=== PATIENT | female | born 1940 | race Caucasian/White ===

== ENCOUNTER 2018-05-16 06:59 | Observation (INO) | payer MEDICARE ==
--- NOTE | 2018-05-14 12:30 | NUR ---
CLARIFICATION ORDER CLARIFIED ORDER FOR PROCEDURE, PER DR. HAQUE, PROCEDURE IS ANTERIOR AND POSTERIOR REPAIR, VAGINAL HYSTERECTOMY.
[2018-05-14 12:32] LABS: BASOPHILS % (AUTO) 1.2 % (0.0-5.0); EOSINOPHILS % (AUTO) 2.4 % (0.0-8.0); HEMATOCRIT 40.4 % (36-48); LYMPHOCYTES % (AUTO) 31.5 % (21.0-51.0); MEAN CORPUSCULAR HEMOGLOBIN 30.3 pg (27.0-33.0); MEAN CORPUSCULAR HGB CONC 33.1 g/dL (32.0-36.0); MEAN CORPUSCULAR VOLUME 91.6 fL (79-99); NEUTROPHILS % (AUTO) 57.9 % (40.0-77.0); PLATELET COUNT (AUTO) 331 K/uL (130-400); RED BLOOD CELL COUNT(AUTO) 4.41 MIL/uL (4.00-5.50); RED CELL DISTRIBUTION WIDTH 14.3 % (11.0-15.5); WHITE BLOOD COUNT (AUTO) 7.4 K/uL (4.8-10.8)
[2018-05-14 12:41] VITALS: BP 164/81
[2018-05-14 12:48] LABS: ALBUMIN 3.6 g/dL (3.5-5.0); BILIRUBIN,TOTAL 0.4 mg/dL (0.2-1.0); CREATININE 0.6 mg/dL (0.5-1.5); POTASSIUM 4.1 mmol/L (3.5-5.1); TOTAL PROTEIN, SERUM 7.2 g/dL (6.0-8.3)
[2018-05-16] VITALS (20 sets, daily range): BP systolic 121–166; BP diastolic 48–78
[~2018-05-16] VITALS: Ht 160 cm; Wt 74.9 kg
[~2018-05-16 06:59] MED LIST: AEC81 PO; CALDOLOR 800MG+NS 250ML 250 ML IV SCH; CEFAZOLIN SODIUM 1 GM VIAL IVP SCH; LACTATED RINGERS 1000ML 1,000 ML IV SCH; LISI10TA7 PO
[2018-05-16] MEDS ORDERED: SULFANILAMIDE 120 GM TUBE VG ONE (07:45)
[2018-05-16] MEDS ORDERED: LIDOCAINE 1%-EPI 1:100,000 20 ML VIAL IJ ONE (07:45)
[2018-05-16] MEDS ORDERED: CEFAZOLIN SODIUM 1 GM VIAL ONE (07:49)
[2018-05-16] MEDS ORDERED: CALDOLOR 800MG+NS 250ML 250 ML IV ONE (07:49)
[2018-05-16] MEDS ORDERED: ONDANSETRON HCL 4 MG/2 ML VIAL ONE (08:25)
[2018-05-16] MEDS ORDERED: GLYCOPYRROLATE 1 MG/5 ML SYRINGE ONE (08:25)
[2018-05-16] MEDS ORDERED: NEOSTIGMINE 5MG/5ML SYR IV ONE (08:25)
[2018-05-16] MEDS ORDERED: LIDOCAINE PF 2% 5ML ABBOJECT ONE (08:25)
[2018-05-16] MEDS ORDERED: DEXAMETHASONE SOD PHOSPHATE 10MG/ML 1ML VIAL ONE (08:25)
[2018-05-16] MEDS ORDERED: SUCCINYLCHOLINE 200MG/10ML SYR ONE (08:25)
[2018-05-16] MEDS ORDERED: ROCURONIUM 10MG/1ML SYR 10 MG/ML ML ONE (08:26)
[2018-05-16] MEDS ORDERED: PROPOFOL 10 MG/ML 20ML VIAL IV ONE (08:26)
[2018-05-16] MEDS ORDERED: FENTANYL CITRATE PF 50 MCG/1 ML 2ML VIAL ONE ×3 (08:26→11:27)
[2018-05-16] MEDS ORDERED: ACETAMINOPHEN-CODEINE 300/30MG TAB PO PRN (11:00)
[2018-05-16] MEDS ORDERED: ONDANSETRON HCL 4 MG/2 ML VIAL IVP PRN (11:00)
[2018-05-16] MEDS ORDERED: BISACODYL 10 MG SUPP.RECT RC PRN (11:00)
[2018-05-16] MEDS ORDERED: SIMETHICONE 80 MG TAB.CHEW PO PRN (11:00)
[2018-05-16] MEDS ORDERED: PROMETHAZINE HCL 25 MG/ML 1ML AMPULE IM PRN (11:00)
[2018-05-16] MEDS ORDERED: DOCUSATE SODIUM 100 MG CAP PO PRN (11:00)
[2018-05-16] MEDS: DEXTROSE 5%-LACTATED RINGERS 1,000 ML IV PRN ×2 (12:13→23:12)
[2018-05-16] MEDS ORDERED: ACETAMINOPHEN 325 MG TAB PO PRN (15:45)
[2018-05-16] MEDS ORDERED: ACETAMINOPHEN 325 MG TAB ONE (16:40)
[2018-05-16] MEDS: CEFAZOLIN SODIUM 1 GM VIAL IVP SCH ×2 (16:48→22:06)
[2018-05-16] MEDS: CALDOLOR 800MG+NS 250ML 250 ML IVPB SCH (18:38)
[2018-05-16] MEDS: LISINOPRIL 10 MG TABLET PO SCH (20:59)
[2018-05-16] MEDS: ACETAMINOPHEN 325 MG TAB PO PRN (21:00)
--- NOTE | 2018-05-16 21:30 | NUR ---
OFFERED TO ARON SANCHEZ BUT SHE REFUSED.
[2018-05-17 01:14] VITALS: BP 115/48
[2018-05-17] MEDS: CALDOLOR 800MG+NS 250ML 250 ML IVPB SCH (03:12)
--- NOTE | 2018-05-17 04:00 | NUR ---
PT.SAID SHE'S PARTLY AWAKE AND DOES NOT WANT TO DANGLE AT THIS TIME.
[2018-05-17] MEDS: ACETAMINOPHEN 325 MG TAB PO PRN ×2 (04:26→10:00)
[2018-05-17 05:40] VITALS: BP 124/49
[2018-05-17] MEDS: CEFAZOLIN SODIUM 1 GM VIAL IVP SCH (06:41)
[2018-05-17 07:12] LABS: HEMATOCRIT 32.5 % (36-48); MEAN CORPUSCULAR HEMOGLOBIN 30.1 pg (27.0-33.0); MEAN CORPUSCULAR HGB CONC 32.5 g/dL (32.0-36.0); MEAN CORPUSCULAR VOLUME 92.7 fL (79-99); PLATELET COUNT (AUTO) 309 K/uL (130-400); WHITE BLOOD COUNT (AUTO) 11.5 K/uL (4.8-10.8)
[2018-05-17 07:47] VITALS: BP 122/59
[2018-05-17] MEDS: LISINOPRIL 10 MG TABLET PO SCH (09:59)
[2018-05-17] MEDS: DEXTROSE 5%-LACTATED RINGERS 1,000 ML IV PRN (10:02)
[2018-05-17] MEDS ORDERED: IBUPROFEN 800 MG TAB PO SCH (11:00)
[2018-05-17 11:20] VITALS: BP 118/58
--- NOTE | 2018-05-17 12:00 | NUR ---
MD DR. HAQUE ROUNDING ON PATIENT. VAGINAL PACKING REMOVED. THAKKAR CATHETER REMOVED BY MINNIE FAJARDO.
[2018-05-17 15:23] VITALS: BP 128/59
--- NOTE | 2018-05-17 15:55 | NUR ---
DISCHARGE PATIENT LEFT UNIT VIA WHEELCHAIR WITH BELONGINGS IN HAND ACCOMPANIED BY . PERSONAL VEHICLE USED FOR TRANSPORTATION. NO COMPLAINTS OR CONCERNS ADDRESSED FROM PATIENT ON DISCHARGE.
== END 2018-05-17 15:55 | disposition home or self-care (01) ==
LOC: DAH 06:59 → WSH 07:00
DX: N81.3 Complete uterovaginal prolapse (principal); Z79.899 Other long term (current) drug therapy
CPT/HCPCS: 36415 ×2; 57260; 58260; 80053; 85025; 85027; 86850; 86900; 86901; 88305; 96365; 96366 ×2; 96375; 96376 ×2; A4215; A4218 ×4; A4344; A4351; G0378 ×33; J0330; J0690 ×4; J1100; J1741 ×3; J2001; J2405; J2704; J2710; J3010 ×3; J3490 ×2; J7030; J7120

== ENCOUNTER → 2020-02-24 | Outpatient (CLI) | payer MEDICARE ==
[~2020-02-24] MED LIST changes: -CALDOLOR 800MG+NS 250ML 250 ML IV SCH; -CEFAZOLIN SODIUM 1 GM VIAL IVP SCH; -LACTATED RINGERS 1000ML 1,000 ML IV SCH
== END | disposition home or self-care (01) ==
LOC: RAH 15:23
PROVIDERS: ATTEND Family Medicine
DX: Z12.31 Encounter for screening mammogram for malignant neoplasm of breast (principal)
CPT/HCPCS: 77067